=== PATIENT | female | born 1945 | race African-American/Black ===

== ENCOUNTER 2016-09-28 08:09 | Day surgery (SDC) | payer MEDICARE ==
[~2016-09-28] VITALS: Ht 166.4 cm; Wt 91.6 kg
[~2016-09-28 08:09] MED LIST: ALENDRONATE70 MG PO; ALLEGRA-D 2424 HOUR PO; ALLOPURINOL300 MG PO; ASPIRIN 81 LOW81 MG PO; BAYER LOW81 MG PO; BREO ELLIPTA 101 INH; CALTRATE 600+D1 CHW PO; CIPROFLOXACN500 MG PO; CLONIDINE0.1 MG PO; COLPROBENEMID500 MG PO; COREG12.5 MG PO; COREG6.25 MG PO; DEPO-MEDROL40 MG/ML IJ; DUONEB IN; FLEXERIL10 MG OR; FLONASE NASAL50 MCG; IPRATROPIU0.5 MG/3 M IN; K-DUR/KLOR-CON10 MEQ PO; KEFLEX250 MG PO; KLOR-CON M2020 MEQ OR; LASIX 40 MG40 MG/TAB PO; LASIX40 MG PO; LASIX80 MG OR; LORTAB 5 OR; LORTAB 7.57.5 MG PO; MEDDOSEPAK OR; MEDDOSEPAK PO; MEDROL DOSEPAK4 MG PO; METFORMIN850 MG PO; METO100T50 OR; METOLAZONE2.5 MG PO; METOLAZONE5 MG PO; METOPROLOL TART50 MG PO; NEBULIZE3 IN; NORVASC PO; NORVASC2.5 MG PO; NORVASC5 MG PO; ONE DAILY MULTI1 TA2 PO; OXY1; POT CHLORIDE10 ME1 PO; POT CHLORIDE10 ME5 PO; PRILOSEC40 MG PO; PROAIR HFA IN; ROBAXIN-750750 MG PO; ROBITUSSIN AC10 ML PO; SPIRIVA IN; STERAPRED DS10 MG PO; STERAPRED5 MG PO; SYMBICORT 80-4.5MCG IN; TIZANIDINE HCL4 M1 PO; TRAMADOL HCL50 MG PO; ULTRAM50 MG PO; ZAROXOLYN2.5 M1 PO; ZITHROMAX500 MG PO; ZPAK PO; [UNRECOGNIZED DRUG - CODE]
[2016-09-28 11:09] VITALS: BP 128/77
== END 2016-09-28 11:30 | disposition home or self-care (01) ==
LOC: ORM 08:09
PROVIDERS: ATTEND Surgery
PROC: 0HBT0ZX Excision of Right Breast, Open Approach, Diagnostic (ICD-10-PCS; principal; 2016-09-28)
DX: N64.1 Fat necrosis of breast (principal); N64.89 Other specified disorders of breast; I25.10 Atherosclerotic heart disease of native coronary artery without angina pectoris; I11.0 Hypertensive heart disease with heart failure; I15.0 Renovascular hypertension; J44.9 Chronic obstructive pulmonary disease, unspecified; G47.33 Obstructive sleep apnea (adult) (pediatric); K21.9 Gastro-esophageal reflux disease without esophagitis; M47.816 Spondylosis without myelopathy or radiculopathy, lumbar region

== ENCOUNTER 2017-02-22 05:12 | Emergency (ER) | payer MEDICARE ==
[~2017-02-22] VITALS: Ht 166.4 cm; Wt 91.4 kg
[2017-02-22] MEDS ORDERED: AMLODIPINE BESYL5 MG PO (05:38)
[2017-02-22] MEDS ORDERED: CRESTOR5 MG PO (05:39)
[2017-02-22 07:50] VITALS: BP 140/83
[2017-02-22] MEDS ORDERED: PERCOCET 5/325M1 TAB PO (07:50)
== END 2017-02-22 08:00 | disposition home or self-care (01) ==
LOC: ED 05:12
DX: R07.89 Other chest pain (principal); R91.8 Other nonspecific abnormal finding of lung field; R07.1 Chest pain on breathing; Z91.81 History of falling

== ENCOUNTER 2020-01-27 18:59 | Emergency (ER) | payer MEDICARE ==
[~2020-01-27] VITALS: Ht 166.4 cm; Wt 93.6 kg
[~2020-01-27 18:59] MED LIST changes: +AMLODIPINE BESYL5 MG PO; +CRESTOR5 MG PO; +PERCOCET 5/325M1 TAB PO
[2020-01-27 19:18] VITALS: BP 188/118
[2020-01-27] MEDS ORDERED: ALDACTONE25 MG PO (20:03)
[2020-01-27] MEDS ORDERED: LABETALOL HYDR100 MG PO (20:03)
[2020-01-27] MEDS ORDERED: VALSARTAN80 MG PO (20:04)
== END 2020-01-27 20:20 | disposition home or self-care (01) ==
LOC: ED 18:59
DX: S80.02XA Contusion of left knee, initial encounter (principal); I11.0 Hypertensive heart disease with heart failure; I50.9 Heart failure, unspecified; J44.9 Chronic obstructive pulmonary disease, unspecified; W01.0XXA Fall on same level from slipping, tripping and stumbling without subsequent striking against object, initial encounter; Y92.481 Parking lot as the place of occurrence of the external cause; Z95.5 Presence of coronary angioplasty implant and graft; Z79.84 Long term (current) use of oral hypoglycemic drugs

== ENCOUNTER 2020-09-18 10:20 | Inpatient (IN) | payer MEDICARE ==
[~2020-09-18] VITALS: Ht 167.6 cm; Wt 98.0 kg
[~2020-09-18 10:20] MED LIST changes: +ALDACTONE25 MG PO; +LABETALOL HYDR100 MG PO; +VALSARTAN80 MG PO
--- NOTE | 2020-09-18 10:24 | NUR ---
PT IMMEDIATELY TO 6 VIA WC.
--- NOTE | 2020-09-18 11:21 | NUR ---
PT RESTING IN STRETCHER IN NAD AND DENIES ANY NEEDS. PAIN NOW 07/01, VSS. CALL AWA CARTY.
[2020-09-18 11:36] LABS: HEMATOCRIT 38.1 % (37.0-47.0); HEMOGLOBIN 11.5 g/dl (12.0-16.0); IMMATURE GRANULOCYTES 0.1 % (0.0-5.0); MEAN CELL VOLUME 95.3 fL CALC (80.0-100.0); MEAN CORPUSCULAR HGB 28.8 pG CALC (26.0-32.0); MEAN CORPUSCULAR HGB CONC 30.2 g/dL CAL (32.0-36.0); NEUT# 5.01 thou/uL (2.00-7.15); RED CELL DISTRI WIDTH 15.7 % (11.5-15.5)
--- NOTE | 2020-09-18 12:00 | NUR ---
DRY COUGH NOTED. PT REPORTS COUGHING STARTED YESTERDAY WITH THE LEFT SIDED BACK PAIN. BIALTERAL LS DIMINISHED TO THE LOWER LOBES. CALL BILLINGS WITHIN REACH.
[2020-09-18 12:09] LABS: ALKALINE PHOSPHATASE 66 u/l (38-126); BILIRUBIN, TOTAL 0.5 mg/dL (0.0-1.4); BUN 32 mg/dL (8-23); BUN/CREATININE RATIO 15 (12-20 (CALC)); CHLORIDE 110 mmol/l (95-108); CREATININE 2.1 mg/dL (0.5-1.0); GFR 23 ML/MIN (>=60 (CALC)); GFR FOR AFR.AMER. 28 ML/MIN (>=60 (CALC)); SODIUM 138 mmol/l (137-146); TOTAL PROTEIN 7.5 g/dL (6.3-8.2)
[2020-09-18 12:12] LABS: ANION GAP 16 (6-22 (CALC)); CARBON DIOXIDE 17 mmol/l (22-30); SGOT/AST 49 u/l (9-36)
[2020-09-18 12:21] LABS: MYOGLOBIN 119 ng/mL (0 - 62)
--- NOTE | 2020-09-18 12:50 | NUR ---
PATIENT TO BATHROM VIA WHEELCHAIR TO COLLECT URINE SAMPLE.
[2020-09-18 13:17] LABS: URINE BILIRUBIN - DIPSTICK NEGATIVE (NEGATIVE); URINE BLOOD DIPSTICK TRACE-LYSED (NEGATIVE); URINE COLOR YELLOW; URINE GLUCOSE - DIPSTICK NEGATIVE (NEGATIVE); URINE KETONE NEGATIVE (NEGATIVE); URINE PH 5.5 (4.5-8.0); URINE PROTEIN - DIPSTICK TRACE mg/dL (NEG-TRACE); URINE UROBILINOGEN - DIPSTICK 0.2 E.U./dL (0.2)
[2020-09-18 13:18] LABS: URINE LEUK ESTERASE MODERATE (NEGATIVE); URINE NITRITE - DIPSTICK NEGATIVE (Negative)
--- NOTE | 2020-09-18 13:30 | NUR ---
PATIENT AWARE OF PENDING RESULTS AND WAIT TIME. CALL BILLINGS WITHIN REACH.
[2020-09-18 13:33] LABS: URINE RBC 0-2 RBC/hpf (0-5); URINE TRICHOMONAS FEW hpf; URINE WBC 20-50 WBC/hpf (0-5)
[2020-09-18 13:34] LABS: URINE BACTERIA FEW hpf; URINE SQUAMOUS EPITHELIAL CELL MANY EPI/hpf (0-FEW)
--- NOTE | 2020-09-18 14:00 | NUR ---
DR ROSAS AT [facility] TO DISCUSS RESULTS AND PLAN FOR ADMISSION.
--- NOTE | 2020-09-18 15:00 | NUR ---
PT SATS 90-92% SHE REPORTS USING 2L SPO2 NEEDED AT HOME AND IS REQUESTING 02. PLACED ON PATIENT AND S902 100%.
[2020-09-18] MEDS ORDERED: AMLODIPINE BESYL5 MG PO (15:07)
[2020-09-18] MEDS ORDERED: VALSARTAN80 MG PO (15:07)
[2020-09-18] MEDS ORDERED: METFORMIN500 M2 PO (15:07)
--- NOTE | 2020-09-18 15:25 | NUR ---
PT RESTING IN STRETCHER IN NAD AND DENIES ANY NEEDS. CALL BILLINGS WITHIN REACH, AWARE OF PENDING RESULTS AND WAIT TIME.
--- NOTE | 2020-09-18 16:06 | NUR ---
SELINA GREENWOOD AT BEDSIDE.
--- NOTE | 2020-09-18 16:45 | NUR ---
REPORT CALLED TO DEVONTE CASANOVA.
[2020-09-18 17:26] VITALS: BP 171/96
--- NOTE | 2020-09-18 17:30 | NUR ---
PT TO MED SURG BED 272 AT THIS TIME VIA STRETCHER WITH TELE IN PLACE. CARE RELINQUISHED TO MED SURG STAFF.
--- NOTE | 2020-09-18 17:30 | NUR ---
PT ARRIVED VIA STRETCHER A&O X4. NO DISTRESS NOTED. O2 VIA NC @2L IN PLCE, PT ADMITS TO USING IT PRN AT HOME AT 2L. O2 CURRENTLY 94%. CLEAR/DIMINISHED BREATH SOUNDS. ACTIVE BOWEL SOUND X4 QUADRANTS. BM REPORTED YESTERDAY LOOSE IN CONSISTENCY. PT REPORTS HAVING A SYNCOPAL EPISODE 2 WKS AGO, LT ANKLE/FOOT TENDERNESS AFTER THE FALL, BUT DENIES FOLLOWING UP WITH A PCP ABOUT THIS EPISODE. PT DENIES BEING SEXUALLY ACTIVE, ALTHOUGH URINE DID RESULT POSITIVE IN TRICHOMONAS. #20 LAC HEALTHY AND PATENT WITH IVF INFUSING PER MAR ORDER. PT REPORTS GETTING COVID VACCINE X2 DOSES. NO OTHER NEEDS AT THIS TIME. [facility] OFFERED BUT REFUSED. SCHEDULED COZAAR GIVEN. HANDBAG FRAMES INSPECTOR IN PLACE CURRENTLY READING SR 70 PER Herb HONEYCUTT LPN/ED . ORIENTED PT TO ROOM. ASSESSMENT COMPLETED. DISCUSSED POC. CALL LIGHT WITHIN REACH.
[2020-09-18 18:41] VITALS: BP 141/75
--- NOTE | 2020-09-18 20:00 | NUR ---
PATIENT RESTING IN BED AT THIS TIME-AWAKE ALERT AND ORIENTEDX3. O2 VIA NASAL CANNULA IN PLACE AT 2LPM. O2 SAT IS 100%. TELE MONITOR IN PLACE-LAST READING WAS SR-73. PATIENT WITH NO COMPLAINTS AT THIS TIME. LUNGS ARE CLEAR-DIMINISHED IN THE BASES. PATIENT STATES THAT SHE DOES HAVE HOME O2 FOR PRN USE AND ALSO HAS C-PAP AT BEDTIME PRN. PATIENT WITH NON-PRODUCTIVE COUGH. TRACE SWELLING TO BRODY LE-LEFT GREATER THAN RIGHT. SAFETY PRECAUTIONS REINFROCED.CALL LIGHT IN REACH. WILL CONT TO MONITOR.
--- NOTE | 2020-09-18 21:30 | NUR ---
PATIENT RESTING IN [id number] WAS 108-NO COVERAGE. HS SNACK PROVIDED. NO COMPLAINTS AT THIS TIME. CALL LIGHT IN REACH. WILL CONT TO MONITOR.
--- NOTE | 2020-09-18 23:47 | NUR ---
PATIENT CALLED AND RESPONDED TO ROOM-MIN ASSIST TO THE BR TO VOID. SLIGHTLY UNSTEADY ON FEET. SOB WITH EXHERSION. REAPPLIED O2 VIA NASAL CANNULA AT 2LPM. TELE MONITOR REMAINS IN PLACE. IVF PATENT AND INFUSING VIA LAC SITE AT 100CC/HR. SAFETY PRECAUTIONS REINFORCED. CALL LIGHT IN REACH. WILL CONT TO MONITOR.
[2020-09-19] VITALS: BP 125/82
--- NOTE | 2020-09-19 03:35 | NUR ---
PATIENT CALLING FOR ASSSIT TO THE BR TO VOID. STILL UNSTEADY ON HER FEET. VOIDING QS-DENIES ANY UTI SX. BACK TO BED. SOB WITH EXHERSION. TELE MONITOR IN PLACE. IVF NS PATENT AND INFUSING VIA LAC SITE AT 100CC/HR. SAFETY PRECAUTIONS REINFORCED, CALL LIGHT IN REACH. WILL CONT TO MONITOR.
[2020-09-19 04:35] VITALS: BP 136/89
--- NOTE | 2020-09-19 04:45 | NUR ---
PATIENT RESTING IN BED WITH O2 VIA NASAL CANNULA IN PLACE. PATIENT WITH C/O LEFT SHOULDER PAIN-5/10 ON PAIN SCALE. SAME PAIN THAT BROUGHT HERE TO THE ER. MEDICATED WITH TYLENOL 650MG PO. ALSO PROVIDED WITH WARM COMPRESS FOR COMFORT. CALL LIGHT IN REACH. WILL CONT TO MONITOR.
[2020-09-19 05:45] LABS: HEMATOCRIT 35.4 % (37.0-47.0); HEMOGLOBIN 11.1 g/dl (12.0-16.0); MEAN CELL VOLUME 93.2 fL CALC (80.0-100.0); MEAN CORPUSCULAR HGB 29.2 pG CALC (26.0-32.0); MEAN CORPUSCULAR HGB CONC 31.4 g/dL CAL (32.0-36.0); RED BLOOD COUNT 3.8 mill/uL (4.20-5.60); RED CELL DISTRI WIDTH 15.6 % (11.5-15.5)
[2020-09-19 06:23] LABS: CHOLESTEROL HDL RATIO 2.9 (<4.4 (CALC)); CREATININE 1.9 mg/dL (0.5-1.0); MAGNESIUM 1.9 mg/dL (1.6-2.3); POTASSIUM 4.9 mmol/l (3.5-5.1)
--- NOTE | 2020-09-19 07:00 | NUR ---
RECIEVED REPORT FROM DEVONTE BARRIENTOS
[2020-09-19 08:08] VITALS: BP 137/89
--- NOTE | 2020-09-19 08:08 | NUR ---
PT RESTING IN SEMI FOWLERS POSITION UPON ENTERING ROOM. PT IS A/O X3. ASSESSMENT AND VITALS COMPLETED. BP 137/89, HR 95, O2 95% ON ROOM AIR. 2L NC PRN AT BEDSIDE. RESPIRATIONS ARE SHALLOW. NONPRODUCTIVE COUGH NOTED. HEART RHYTHM NORMAL. BOWEL SOUNDS ARE ACTIVE. LBM 09/17/20. RADIAL AND PEDAL PULSES STRONG. #20G LAC INFUSING WITH IVF PER ORDER, SITE REMAINS HEALTHY AND PATENT. SKIN INTACT. PT COMPLAINS OF 3/10 LEFT SHOULDER PAIN WHEN COUGHING. PT MEDICATED PER EMAR AND HEAT PACK TO BE GIVEN. PT DENIES OF ANY ADDITIONAL NEEDS AT THIS TIME. ALL SAFETY PRECAUTIONS ARE IN PLACE WITH CALL LIGHT IN REACH. WILL CONTINUE TO MONITOR.
--- NOTE | 2020-09-19 09:34 | NUR ---
DR WU AT BEDSIDE
--- NOTE | 2020-09-19 09:47 | NUR ---
RECIEVED ICU BED 5.
--- NOTE | 2020-09-19 09:52 | NUR ---
REPORT GIVEN TO ALMA
--- NOTE | 2020-09-19 09:52 | NUR ---
REPORT GIVEN TO DEVONTE MARQUEZ
[2020-09-19 09:56] VITALS: BP 130/82; BP 134/83
--- NOTE | 2020-09-19 10:00 | NUR ---
BILATERL BP COMPLETED. RIGHT 134/83. LEFT 130/82. MD NOTIFIED.
--- NOTE | 2020-09-19 10:04 | NUR ---
PT TRANSFERED TO ICU BED 5 INSTABLE CONDITION VIA WHEELCHAIR ACCOMPAINED BY SAMPLE SHOE INSPECTOR AND REWORKER WITH ALL BELONINGS
--- NOTE | 2020-09-19 10:35 | NUR ---
RECEIVED FROM [facility] TO ICU 5. PLACED ON TELEMETRY MONITERING.
[2020-09-19 10:52] VITALS: BP 150/88
--- NOTE | 2020-09-19 16:07 | NUR ---
[facility] TRANSPORT STAFF HERE TO TRANSPORT PT TO [facility].
--- NOTE | 2020-09-19 16:28 | NUR ---
TRANSPORTED SAFELY OFF UNIT BY TRANSPORT STAFF. PT TO GO TO ROOM [address] [facility]. TELEPHONE REPORT GIVEN TO DEVONTE NEWELL @[phone].
== END 2020-09-19 16:30 | disposition short-term general hospital (02) | DRG 313 ==
LOC: ED 10:20 → ED-I 13:50 → ED 14:02 → MS2 14:03 → ICU 09-19 01:41
PROVIDERS: Emergency Medicine; Nurse Practitioner; ADMIT Internal Medicine; ATTEND Internal Medicine
DX: R07.9 Chest pain, unspecified (principal); J18.9 Pneumonia, unspecified organism; N39.0 Urinary tract infection, site not specified; J44.0 Chronic obstructive pulmonary disease with (acute) lower respiratory infection; N17.9 Acute kidney failure, unspecified; I13.0 Hypertensive heart and chronic kidney disease with heart failure and stage 1 through stage 4 chronic kidney disease, or unspecified chronic kidney disease; E87.2 Acidosis; I71.2 Thoracic aortic aneurysm, without rupture; E11.22 Type 2 diabetes mellitus with diabetic chronic kidney disease; N18.30 Chronic kidney disease, stage 3 unspecified; I50.9 Heart failure, unspecified; I25.10 Atherosclerotic heart disease of native coronary artery without angina pectoris; E78.5 Hyperlipidemia, unspecified; M54.9 Dorsalgia, unspecified; G89.29 Other chronic pain; I67.1 Cerebral aneurysm, nonruptured; R09.02 Hypoxemia; B95.1 Streptococcus, group B, as the cause of diseases classified elsewhere; Z91.041 Radiographic dye allergy status; Z95.5 Presence of coronary angioplasty implant and graft; Z95.828 Presence of other vascular implants and grafts; Z20.822 Contact with and (suspected) exposure to COVID-19
CPT/HCPCS: J1956

== ENCOUNTER 2021-01-20 11:19 | Observation (INO) | payer MEDICARE ==
[~2021-01-20] VITALS: Ht 167.6 cm; Wt 83.0 kg
[~2021-01-20 11:19] MED LIST changes: +METFORMIN500 M2 PO
[2021-01-20 12:18] LABS: HEMATOCRIT 36.7 % (37.0-47.0); HEMOGLOBIN 10.8 g/dl (12.0-16.0); MEAN CELL VOLUME 93.9 fL CALC (80.0-100.0); MEAN CORPUSCULAR HGB 27.6 pG CALC (26.0-32.0); MEAN CORPUSCULAR HGB CONC 29.4 g/dL CAL (32.0-36.0); NEUT# 4.79 thou/uL (2.00-7.15); RED BLOOD COUNT 3.91 mill/uL (4.20-5.60); RED CELL DISTRI WIDTH 17.2 % (11.5-15.5)
[2021-01-20 12:29] LABS: ALBUMIN 4.1 g/dL (3.2-5.0); ALKALINE PHOSPHATASE 91 u/l (38-126); BILIRUBIN, TOTAL 0.6 mg/dL (0.0-1.4); BUN 24 mg/dL (8-23); BUN/CREATININE RATIO 14 (12-20 (CALC)); CHLORIDE 109 mmol/l (95-108); CREATININE 1.7 mg/dL (0.5-1.0); GFR 29 ML/MIN (>=60 (CALC)); GFR FOR AFR.AMER. 35 ML/MIN (>=60 (CALC)); POTASSIUM 4.8 mmol/l (3.5-5.1); SGOT/AST 21 u/l (9-36); SODIUM 143 mmol/l (137-146); TOTAL PROTEIN 7.8 g/dL (6.3-8.2)
[2021-01-20 12:33] LABS: ANION GAP 15 (6-22 (CALC)); CARBON DIOXIDE 24 mmol/l (22-30)
[2021-01-20] MEDS ORDERED: TRAMADOL HYDROC50 M1 PO (14:54)
[2021-01-20 15:42] VITALS: BP 158/91
[2021-01-20 19:00] VITALS: BP 146/80
[2021-01-21] VITALS: BP 140/86
[2021-01-21 04:00] VITALS: BP 139/82
[2021-01-21 05:44] LABS: HEMATOCRIT 33.2 % (37.0-47.0); HEMOGLOBIN 10.1 g/dl (12.0-16.0); MEAN CELL VOLUME 90.2 fL CALC (80.0-100.0); MEAN CORPUSCULAR HGB 27.4 pG CALC (26.0-32.0); MEAN CORPUSCULAR HGB CONC 30.4 g/dL CAL (32.0-36.0); RED BLOOD COUNT 3.68 mill/uL (4.20-5.60); RED CELL DISTRI WIDTH 16.8 % (11.5-15.5)
[2021-01-21 05:54] LABS: CHOLESTEROL HDL RATIO 2.3 (<4.4 (CALC)); CREATININE 1.8 mg/dL (0.5-1.0); MAGNESIUM 1.8 mg/dL (1.6-2.3); POTASSIUM 4.6 mmol/l (3.5-5.1)
[2021-01-21 08:00] VITALS: BP 137/85
[2021-01-21 11:02] VITALS: BP 144/70
[2021-01-21 15:06] VITALS: BP 149/72
[2021-01-21 19:00] VITALS: BP 157/83
[2021-01-22] VITALS: BP 137/80
[2021-01-22 03:34] VITALS: BP 139/67
[2021-01-22 05:45] LABS: URINE BILIRUBIN - DIPSTICK NEGATIVE (NEGATIVE); URINE BLOOD DIPSTICK TRACE-INTACT (NEGATIVE); URINE CLARITY CLEAR; URINE COLOR YELLOW; URINE GLUCOSE - DIPSTICK NEGATIVE (NEGATIVE); URINE KETONE NEGATIVE (NEGATIVE); URINE LEUK ESTERASE MODERATE (Negative); URINE NITRITE - DIPSTICK NEGATIVE (Negative); URINE PH 5.5 (4.5-8.0); URINE SPECIFIC GRAVITY 1.015; URINE UROBILINOGEN - DIPSTICK 0.2 E.U./dL (0.2)
[2021-01-22 05:58] LABS: ALBUMIN 3.6 g/dL (3.2-5.0); CREATININE 1.9 mg/dL (0.5-1.0); MAGNESIUM 1.6 mg/dL (1.6-2.3); POTASSIUM 4.4 mmol/l (3.5-5.1)
[2021-01-22 06:07] LABS: HEMOGLOBIN 10.4 g/dl (12.0-16.0); MEAN CELL VOLUME 90.7 fL CALC (80.0-100.0); MEAN CORPUSCULAR HGB 27.7 pG CALC (26.0-32.0); MEAN CORPUSCULAR HGB CONC 30.6 g/dL CAL (32.0-36.0); RED BLOOD COUNT 3.75 mill/uL (4.20-5.60); RED CELL DISTRI WIDTH 16.7 % (11.5-15.5)
[2021-01-22 06:09] LABS: URINE PROTEIN - DIPSTICK NEGATIVE (NEG-TRACE)
[2021-01-22 06:11] LABS: URINE BACTERIA MODERATE hpf; URINE EPITHELIAL CELLS MODERATE EPI/hpf (0-FEW); URINE TRICHOMONAS FEW hpf
[2021-01-22 08:28] VITALS: BP 141/72
[2021-01-22] MEDS ORDERED: FARXIGA10 MG PO (09:20)
[2021-01-22] MEDS ORDERED: LASIX 20 MG TAB20 MG PO (09:20)
[2021-01-22] MEDS ORDERED: TOBREX OPTH5 ML/BTL OU (09:54)
[2021-01-22 10:00] VITALS: BP 133/83
== END 2021-01-22 12:50 | disposition home or self-care (01) ==
LOC: ED 11:19 → ED-I 14:00 → ED 14:18 → MS2 14:19
PROVIDERS: Family Medicine; Internal Medicine Nephrology; Nurse Practitioner; ADMIT Internal Medicine; ATTEND Internal Medicine
DX: I13.0 Hypertensive heart and chronic kidney disease with heart failure and stage 1 through stage 4 chronic kidney disease, or unspecified chronic kidney disease (principal); I50.9 Heart failure, unspecified; N17.9 Acute kidney failure, unspecified; E11.22 Type 2 diabetes mellitus with diabetic chronic kidney disease; N18.30 Chronic kidney disease, stage 3 unspecified; D63.1 Anemia in chronic kidney disease; H10.9 Unspecified conjunctivitis; I25.10 Atherosclerotic heart disease of native coronary artery without angina pectoris; J44.9 Chronic obstructive pulmonary disease, unspecified; E78.5 Hyperlipidemia, unspecified; R09.02 Hypoxemia; Z23 Encounter for immunization; Z99.81 Dependence on supplemental oxygen; Z95.5 Presence of coronary angioplasty implant and graft; Z88.0 Allergy status to penicillin; Z79.84 Long term (current) use of oral hypoglycemic drugs; Z20.822 Contact with and (suspected) exposure to COVID-19

== ENCOUNTER 2021-11-11 18:24 | Emergency (ER) | payer MEDICARE ==
[~2021-11-11] VITALS: Ht 167.6 cm; Wt 95.0 kg
[~2021-11-11 18:24] MED LIST changes: +FARXIGA10 MG PO; +LASIX 20 MG TAB20 MG PO; +TOBREX OPTH5 ML/BTL OU; +TRAMADOL HYDROC50 M1 PO
[2021-11-11 19:22] VITALS: BP 126/79
[2021-11-11 19:31] VITALS: BP 103/70
[2021-11-11 20:11] LABS: IMMATURE GRANULOCYTES 0.3 % (0.0-5.0); MEAN CELL VOLUME 90.9 fL CALC (80.0-100.0); MEAN CORPUSCULAR HGB 28.7 pG CALC (26.0-32.0); MEAN CORPUSCULAR HGB CONC 31.5 g/dL CAL (32.0-36.0); NEUT# 6.15 thou/uL (2.00-7.15); RED BLOOD COUNT 4.5 mill/uL (4.20-5.60); RED CELL DISTRI WIDTH 17.9 % (11.5-15.5)
[2021-11-11 20:12] LABS: HEMATOCRIT 40.9 % (37.0-47.0); HEMOGLOBIN 12.9 g/dl (12.0-16.0)
[2021-11-11 20:29] LABS: ALBUMIN 4.2 g/dL (3.2-5.0); ALKALINE PHOSPHATASE 96 u/l (38-126); ANION GAP 15 (6-22 (CALC)); BILIRUBIN, TOTAL 0.6 mg/dL (0.0-1.4); BUN/CREATININE RATIO 17 (12-20 (CALC)); CARBON DIOXIDE 28 mmol/l (22-30); CHLORIDE 101 mmol/l (95-108); CPK 110 u/l (30-165); CREATININE 2.6 mg/dL (0.5-1.0); GFR FOR AFR.AMER. 22 ML/MIN (>=60 (CALC)); GFR OTHER RACES 18 ML/MIN (>=60 (CALC)); LIPASE 33 u/l (23-300); POTASSIUM 4.6 mmol/l (3.5-5.1); SGOT/AST 23 u/l (9-36); SODIUM 140 mmol/l (137-146); TOTAL PROTEIN 7.6 g/dL (6.3-8.2)
[2021-11-11 20:38] LABS: BUN 45 mg/dL (8-23)
[2021-11-11 22:42] VITALS: BP 103/70
[2021-11-11 22:51] LABS: URINE BILIRUBIN - DIPSTICK NEGATIVE (NEGATIVE); URINE BLOOD DIPSTICK NEGATIVE (NEGATIVE); URINE COLOR YELLOW; URINE GLUCOSE - DIPSTICK 250 mg/dL (NEGATIVE); URINE KETONE NEGATIVE (NEGATIVE); URINE PROTEIN - DIPSTICK NEGATIVE (NEG-TRACE); URINE SPECIFIC GRAVITY 1.025; URINE UROBILINOGEN - DIPSTICK 0.2 E.U./dL (0.2)
[2021-11-11 22:53] LABS: URINE LEUK ESTERASE LARGE (NEGATIVE); URINE NITRITE - DIPSTICK NEGATIVE (Negative)
[2021-11-11 22:56] LABS: URINE SQUAMOUS EPITHELIAL CELL FEW EPI/hpf (0-FEW)
== END 2021-11-11 23:07 | disposition home or self-care (01) ==
LOC: ED 18:24
PROVIDERS: Internal Medicine
DX: M25.572 Pain in left ankle and joints of left foot (principal); I13.0 Hypertensive heart and chronic kidney disease with heart failure and stage 1 through stage 4 chronic kidney disease, or unspecified chronic kidney disease; I50.9 Heart failure, unspecified; N18.30 Chronic kidney disease, stage 3 unspecified; J44.9 Chronic obstructive pulmonary disease, unspecified; W01.0XXA Fall on same level from slipping, tripping and stumbling without subsequent striking against object, initial encounter; Y92.009 Unspecified place in unspecified non-institutional (private) residence as the place of occurrence of the external cause; Z95.5 Presence of coronary angioplasty implant and graft; Z86.79 Personal history of other diseases of the circulatory system